=== PATIENT | male | born 1945 | race Caucasian/White ===

== ENCOUNTER → 2016-08-16 | Outpatient (CLI) | payer MEDICARE, BC ==
[~2016-08-16] MED LIST: AMBIEN 10MG10 MG PO; AVAPRO300 M1 PO; BYSTOLIC10 MG PO; CALCIUM + D 5001 TAB PO; K-99595 MG PO; LEXAPRO 10MG10 MG PO; PEPCID AC20 MG PO; PRIL40 PO; ZOCOR 40MG40 MG PO
== END ==
LOC: COL.RAD 08:06
DX: Z87.891 Personal history of nicotine dependence (principal)

== ENCOUNTER 2016-08-19 10:00 | Outpatient (RCR) | payer MEDICARE, BC | END 2016-09-13 | disposition home or self-care (01) | LOC: MKS.ESL.PT | DX: Z47.89 Encounter for other orthopedic aftercare (principal); M94.211 Chondromalacia, right shoulder; M66.811 Spontaneous rupture of other tendons, right shoulder; M75.111 Incomplete rotator cuff tear or rupture of right shoulder, not specified as traumatic; M25.511 Pain in right shoulder | CPT/HCPCS: G8984-GP; G8988-GP ==

== ENCOUNTER → 2016-12-16 | Outpatient (CLI) | payer MEDICARE, BC ==
[~2016-12-16] MED LIST changes: +B-121000 MCG PO; -CALCIUM + D 5001 TAB PO; +CATAPRES 0.1MG0.1 MG PO; +COZAAR100 MG PO; +DOXYCYCLINE 10100 MG PO; +HYDRODIURIL50 MG PO; +NORCO 325 MG-7.1 TAB PO; +OCUVITE1 TA1 PO; +OYSTERCAL-D 5001 TAB PO; +PROBIOTIC FORMU1 CAP PO
== END ==
LOC: MC.RAD 09:30
DX: N62 Hypertrophy of breast (principal); N63 Unspecified lump in breast

== ENCOUNTER → 2017-01-10 | Outpatient (CLI) | payer MEDICARE, BC ==
[~2017-01-10] MED LIST changes: -B-121000 MCG PO; +CALCIUM + D 5001 TAB PO; -CATAPRES 0.1MG0.1 MG PO; -COZAAR100 MG PO; -DOXYCYCLINE 10100 MG PO; -HYDRODIURIL50 MG PO; -NORCO 325 MG-7.1 TAB PO; -OCUVITE1 TA1 PO; -OYSTERCAL-D 5001 TAB PO; -PROBIOTIC FORMU1 CAP PO
== END ==
LOC: COL.RAD 07:23
DX: M47.22 Other spondylosis with radiculopathy, cervical region (principal)

== ENCOUNTER → 2017-09-15 | Outpatient (CLI) | payer MEDICARE, BC | LOC: COL.VAS 08:00 | DX: I65.23 Occlusion and stenosis of bilateral carotid arteries (principal); I10 Essential (primary) hypertension; E78.5 Hyperlipidemia, unspecified; I25.119 Atherosclerotic heart disease of native coronary artery with unspecified angina pectoris; I95.1 Orthostatic hypotension ==

== ENCOUNTER 2017-10-03 09:40 | Outpatient (CLI) | payer MEDICARE, BC ==
[~2017-10-03] VITALS: Ht 177.8 cm; Wt 115.0 kg
[~2017-10-03 09:40] MED LIST changes: -CALCIUM + D 5001 TAB PO; +OYSTERCAL-D 5001 TAB PO
[2017-10-03] MEDS ORDERED: COZAAR100 MG PO (09:58)
[2017-10-03] MEDS ORDERED: CATAPRES 0.1MG0.1 MG PO (09:59)
[2017-10-03 10:00] VITALS: BP 115/64; PULSE 70; TEMP 97.7
[2017-10-03] MEDS ORDERED: HYDRODIURIL50 MG PO (10:02)
[2017-10-03] MEDS ORDERED: DOXYCYCLINE 10100 MG PO (10:03)
[2017-10-03] MEDS ORDERED: PROBIOTIC FORMU1 CAP PO (10:04)
[2017-10-03] MEDS ORDERED: OCUVITE1 TA1 PO (10:06)
[2017-10-03] MEDS ORDERED: NORCO 325 MG-7.1 TAB PO (10:10)
[2017-10-03] MEDS ORDERED: B-121000 MCG PO (10:12)
[2017-10-03 12:20] VITALS: BP 134/66; PULSE 61
[2017-10-03 12:45] VITALS: BP 130/66; PULSE 64; TEMP 98.3
== END 2017-10-03 13:00 | disposition home or self-care (01) ==
LOC: COL.CAR 09:40
DX: R42 Dizziness and giddiness (principal); I10 Essential (primary) hypertension; I95.1 Orthostatic hypotension; E78.5 Hyperlipidemia, unspecified; K21.9 Gastro-esophageal reflux disease without esophagitis; E78.00 Pure hypercholesterolemia, unspecified; Z88.2 Allergy status to sulfonamides; Z87.891 Personal history of nicotine dependence; Z82.49 Family history of ischemic heart disease and other diseases of the circulatory system

== ENCOUNTER → 2018-01-18 | Outpatient (CLI) | payer MEDICARE, BC ==
[~2018-01-18] MED LIST changes: +B-121000 MCG PO; +CATAPRES 0.1MG0.1 MG PO; +COZAAR100 MG PO; +DOXYCYCLINE 10100 MG PO; +HYDRODIURIL50 MG PO; +NORCO 325 MG-7.1 TAB PO; +OCUVITE1 TA1 PO; +PROBIOTIC FORMU1 CAP PO
== END ==
LOC: COL.RAD 07:26
DX: M99.71 Connective tissue and disc stenosis of intervertebral foramina of cervical region (principal); M47.813 Spondylosis without myelopathy or radiculopathy, cervicothoracic region; M48.02 Spinal stenosis, cervical region

== ENCOUNTER → 2018-02-02 | Outpatient (CLI) | payer MEDICARE, BC | LOC: COL.RAD 07:30 | DX: M50.30 Other cervical disc degeneration, unspecified cervical region (principal); M48.02 Spinal stenosis, cervical region | CPT/HCPCS: A9585 ==

== ENCOUNTER → 2018-03-13 | Outpatient (CLI) | payer OTHER, MEDICARE, BC | LOC: COL.RAD 13:37 | DX: M50.322 Other cervical disc degeneration at C5-C6 level (principal) ==

== ENCOUNTER 2018-03-28 14:00 | Outpatient (RCR) | payer OTHER, BC, MEDICARE | END 2018-03-29 09:51 | disposition home or self-care (01) | LOC: MKS.ESL.PT 14:00 | DX: M47.812 Spondylosis without myelopathy or radiculopathy, cervical region (principal); G89.29 Other chronic pain | CPT/HCPCS: G8978-GP; G8979-GP; G8980-GP ==

== ENCOUNTER 2018-12-06 13:30 | Outpatient (RCR) | payer MEDICARE, BC ==
[2019-01-15] MEDS ORDERED: FLOMAX 0.40.4 MG/CAP PO (11:14)
[2019-01-15] MEDS ORDERED: ZITHROMAX500 M2 PO (15:20)
[2019-01-15] MEDS ORDERED: NORCO 325 MG-51 TAB PO (15:21)
[2019-01-15] MEDS ORDERED: PHENERGAN 25 TA25 MG PO (15:25)
== END 2019-02-21 | disposition home or self-care (01) ==
LOC: WSOT
DX: G56.03 Carpal tunnel syndrome, bilateral upper limbs (principal)

== ENCOUNTER 2019-01-15 10:36 | Emergency (ER) | payer MEDICARE, BC ==
[~2019-01-15] VITALS: Ht 177.8 cm; Wt 113.6 kg
[2019-01-15 10:39] VITALS: TEMP 97.8
[2019-01-15] MEDS ORDERED: FLOMAX 0.40.4 MG/CAP PO (11:14)
[2019-01-15 11:27] LABS: ALBUMIN 4.4 gm/dL (3.5-5.0); BILIRUBIN,TOTAL 0.7 mg/dL (0.0-1.0); C-REACTIVE PROTEIN 6.2 mg/dL (0.0-0.9); CALCIUM 9.7 mg/dL (8.4-10.2); CREATININE, serum 0.78 (0.66-1.25); POTASSIUM 3.8 mmol/L (3.4-5.0); TOTAL PROTEIN 7.4 gm/dL (6.4-8.2)
[2019-01-15 11:28] LABS: HEMATOCRIT 42.4 % (42.0-52.0); HEMOGLOBIN 14.6 g/dl (13.5-18.0); MEAN CELL VOLUME 84 fl (80.0-100.0); MEAN CORPUSCULAR HEMOGLOBIN 29 pg (27.0-31.0); MEAN CORPUSCULAR HGB CONC 34 g/dl (33.0-37.0); MEAN PLATELET VOLUME 10.9 fl (7.4-10.4); PLATELET COUNT 182 K/mm3 (130-400); RED BLOOD COUNT 5.06 M/mm3 (4.20-5.60); REDCELL DISTRIBUTION WIDTH-CV 13.7 % (11.5-14.5)
[2019-01-15 11:45] LABS: BAND 1 % (0-10); EOSINOPHIL 1 % (0-4); LYMPHOCYTE 6 % (20.0-51.0); NEUTROPHILS 89 % (42.0-75.2); PLATELET ESTIMATE NORMAL (NORMAL); TOXIC GRANULATION PRESENT
[2019-01-15 12:06] LABS: COLLECTION METHOD CLEAN CATCH
[2019-01-15 12:15] LABS: PH 6 (5-8); SQUAMOUS EPITHELIAL 0-2 /hpf; URINE APPEARANCE Clear; URINE BACTERIA None Seen /hpf; URINE BILIRUBIN Negative (NEGATIVE); URINE BLOOD Negative (NEGATIVE); URINE COLOR Yellow; URINE GLUCOSE Negative (NEGATIVE); URINE KETONE Negative (NEGATIVE); URINE LEUKOCYTE ESTERASE Negative (NEGATIVE); URINE NITRATE Negative (NEGATIVE); URINE PROTEIN(semi-quant) Negative (NEGATIVE); URINE RBC 0-2 /hpf; URINE UROBILINOGEN Negative (NEGATIVE)
[2019-01-15] MEDS ORDERED: ZITHROMAX500 M2 PO (15:20)
[2019-01-15] MEDS ORDERED: NORCO 325 MG-51 TAB PO (15:21)
[2019-01-15] MEDS ORDERED: PHENERGAN 25 TA25 MG PO (15:25)
[2019-01-15 15:30] VITALS: BP 135/71; PULSE 66
== END 2019-01-15 15:32 | disposition home or self-care (01) ==
LOC: COL.ER 10:36
PROVIDERS: Emergency Medicine
DX: R19.7 Diarrhea, unspecified (principal); I10 Essential (primary) hypertension; E78.5 Hyperlipidemia, unspecified; K58.9 Irritable bowel syndrome, unspecified; Z87.891 Personal history of nicotine dependence
CPT/HCPCS: J1885; J2405; J7030; Q9967

== ENCOUNTER 2019-02-06 08:54 | Outpatient (RCR) | payer MEDICARE, BC ==
[~2019-02-06 08:54] MED LIST changes: +FLOMAX 0.40.4 MG/CAP PO; +NORCO 325 MG-51 TAB PO; +PHENERGAN 25 TA25 MG PO; +ZITHROMAX500 M2 PO
== END 2019-05-07 | disposition home or self-care (01) ==
LOC: WSST
DX: J38.3 Other diseases of vocal cords (principal)

== ENCOUNTER 2021-01-28 10:52 | Day surgery (SDC) | payer MEDICARE, BC ==
[~2021-01-28] VITALS: Ht 177.8 cm; Wt 114.0 kg
[2021-01-28] VITALS (10 sets, daily range): BP systolic 105–146; BP diastolic 53–71; PULSE 58–66; TEMP 97.6
[2021-01-28] MEDS ORDERED: NITRO-DUR0.2 MG/PAT TD (11:07)
[2021-01-28] MEDS ORDERED: LIPITOR 40MG TA40 MG PO (11:08)
[2021-01-28] MEDS ORDERED: NORVASC 10MG10 MG PO (11:08)
[2021-01-28] MEDS ORDERED: AMBIEN 5MG TABLE5 MG PO (11:09)
[2021-01-28] MEDS ORDERED: CLARITIN 1010 MG/TAB PO (11:09)
[2021-01-28] MEDS ORDERED: ACIDOPHILIS PO (11:11)
[2021-01-28] MEDS ORDERED: NATURAL POTASS595 MG PO (11:11)
[2021-01-28] MEDS ORDERED: VOLTAREN GEL 1%1 TU TP (11:12)
[2021-01-28] MEDS ORDERED: ZITHROMAX 250M250 MG PO (11:13)
[2021-01-28] MEDS ORDERED: NASAL DECONGEST10 MG PO (11:18)
[2021-01-28] MEDS ORDERED: FLONASE NASAL S16 GM NS (11:19)
[2021-01-28] MEDS ORDERED: GAS-X ULTRA ST180 MG PO (11:19)
[2021-01-28] MEDS ORDERED: MUCUS RELIEF1200 MG PO (11:20)
[2021-01-28 11:42] LABS: HEMATOCRIT 41.8 % (42.0-52.0); HEMOGLOBIN 14.1 g/dl (13.5-18.0); MEAN CELL VOLUME 87 fl (80.0-100.0); MEAN CORPUSCULAR HEMOGLOBIN 29 pg (27.0-31.0); MEAN CORPUSCULAR HGB CONC 34 g/dl (33.0-37.0); MEAN PLATELET VOLUME 10.2 fl (7.4-10.4); PLATELET COUNT 206 K/mm3 (130-400); RED BLOOD COUNT 4.82 M/mm3 (4.20-5.60); REDCELL DISTRIBUTION WIDTH-CV 13.5 % (11.5-14.5)
[2021-01-28 11:56] LABS: CALCIUM 10.4 mg/dL (8.4-10.2); CREATININE, serum 0.88 mg/dL (0.72-1.25)
[2021-01-28 12:00] LABS: INR 1.1 (0.8-3.0); PROTHROMBIN TIME 11.9 SECONDS (9.7-12.8)
[2021-01-28 12:02] LABS: PARTIAL THROMBOPLASTIN TIME 36.6 SECONDS (26.0-37.0)
--- NOTE | 2021-01-28 13:44 | NUR ---
SEE MERGE DOCMENTATION FOR MEDICATION ADMINISTRATION TIMES AND INTRA/POST PROCEDURE SEDATION ASSESSMENTS.
--- NOTE | 2021-01-28 14:24 | NUR ---
Report from Jarocho LADANA. Transferred by bed from [employer]. Right Tband with 14 cc air CD&I, good pulses and cap refill < 3 secs noted. VSS. bedside
[2021-01-28] MEDS ORDERED: NORVASC 5MG5 MG/TAB PO (14:26)
--- NOTE | 2021-01-28 17:09 | NUR ---
14 cc air released from righ Tband and dressing applied. INT discontinued intact. Discharge instructions given. Transferred to private car by carmencita
== END 2021-01-28 17:15 | disposition home or self-care (01) ==
LOC: COL.CAR 10:52
PROVIDERS: Internal Medicine Cardiovascular Disease
DX: I20.9 Angina pectoris, unspecified (principal); R94.39 Abnormal result of other cardiovascular function study; I10 Essential (primary) hypertension; E78.5 Hyperlipidemia, unspecified; K21.9 Gastro-esophageal reflux disease without esophagitis
CPT/HCPCS: C1769; J1644; J2250; J3010; Q9967

== ENCOUNTER 2021-06-04 10:02 | Outpatient (RCR) | payer MEDICARE, BC ==
[~2021-06-04 10:02] MED LIST changes: +ACIDOPHILIS PO; +AMBIEN 5MG TABLE5 MG PO; +CLARITIN 1010 MG/TAB PO; +FLONASE NASAL S16 GM NS; +GAS-X ULTRA ST180 MG PO; +LIPITOR 40MG TA40 MG PO; +MUCUS RELIEF1200 MG PO; +NASAL DECONGEST10 MG PO; +NATURAL POTASS595 MG PO; +NITRO-DUR0.2 MG/PAT TD; +NORVASC 10MG10 MG PO; +NORVASC 5MG5 MG/TAB PO; +VOLTAREN GEL 1%1 TU TP; +ZITHROMAX 250M250 MG PO
== END 2021-06-07 ==
LOC: MKS.ESL.PT
DX: Z89.231 Acquired absence of right shoulder (principal)

== ENCOUNTER 2021-06-30 10:30 | Outpatient (RCR) | payer MEDICARE, BC | END 2021-07-08 | disposition home or self-care (01) | LOC: MKS.ESL.PT | DX: Z96.611 Presence of right artificial shoulder joint (principal) ==

== ENCOUNTER 2021-07-09 13:09 | Outpatient (RCR) | payer MEDICARE, BC | END 2021-08-07 | disposition home or self-care (01) | LOC: MKS.ESL.PT | DX: M25.511 Pain in right shoulder (principal); Z96.611 Presence of right artificial shoulder joint ==

== ENCOUNTER → 2021-08-26 13:35 | Outpatient (RCR) | payer MEDICARE, BC | END | disposition home or self-care (01) | LOC: MKS.ESL.PT 08-08 10:00 | DX: Z96.611 Presence of right artificial shoulder joint (principal) ==

== ENCOUNTER → 2023-06-05 | Outpatient (CLI) | payer MEDICARE, BC | LOC: COL.RAD 09:28 | DX: R14.2 Eructation (principal); R14.0 Abdominal distension (gaseous); R10.84 Generalized abdominal pain; R07.9 Chest pain, unspecified ==

== ENCOUNTER → 2023-06-08 | Outpatient (RCR) | payer MEDICARE, BC | END | disposition home or self-care (01) | LOC: WSPT | DX: M54.12 Radiculopathy, cervical region (principal) ==